=== PATIENT | male | born 1970 | race African-American/Black ===

== ENCOUNTER 2016-11-16 05:42 | Emergency (ER) | payer SELFPAY ==
[~2016-11-16] VITALS: Ht 172.7 cm; Wt 88.6 kg
[2016-11-16] MEDS ORDERED: IBUPROFEN 800 MG TABLET PO ONE (07:00)
[2016-11-16] MEDS ORDERED: ACETAMINOPHEN 500 MG TABLET PO ONE (07:00)
[2016-11-16 08:33] VITALS: BP 135/90
== END 2016-11-16 08:37 | disposition home or self-care (01) ==
LOC: EMS 05:43
DX: M54.16 Radiculopathy, lumbar region (principal); M51.36 Other intervertebral disc degeneration, lumbar region; I10 Essential (primary) hypertension
CPT/HCPCS: 72100; 99284